=== PATIENT | male | born 1980 | race Two or more races ===

== ENCOUNTER → 2018-06-08 | Emergency (ER) | payer OTHER ==
[~2018-06-08] VITALS: Ht 172.7 cm; Wt 90.7 kg
[~2018-06-08] MED LIST: DOLOGESIC-DF 51 EACH PO
== END | disposition home or self-care (01) ==
LOC: ER 21:28
DX: S93.402A Sprain of unspecified ligament of left ankle, initial encounter (principal); X50.3XXA Overexertion from repetitive movements, initial encounter; Y93.89 Activity, other specified; Y92.511 Restaurant or cafe as the place of occurrence of the external cause; Y99.8 Other external cause status